=== PATIENT | female | born 1960 | race Caucasian/White ===

== ENCOUNTER 2017-04-29 07:56 | Day surgery (SDC) | payer OTHER ==
[~2017-04-29] VITALS: Ht 149.9 cm; Wt 85.3 kg
[~2017-04-29 07:56] MED LIST: CEFAZOLIN SOD 1 GM/ ISO 50 ML PREMIX IV ONE
[2017-04-29] MEDS ORDERED: SEVOFLURANE 15 MIN GAS INH ONE (11:03)
[2017-04-29] MEDS ORDERED: PROPOFOL 200MG/ 20ML VIAL (DIPRIVAN) IV ONE (11:03)
[2017-04-29] MEDS ORDERED: BUPIVACAINE /PF 0.25% 30 ML VIAL INJ ONE (11:03)
[2017-04-29] MEDS ORDERED: KETOROLAC TROMETHAMINE 30 MG VIAL IVP ONE (11:03)
[2017-04-29] MEDS ORDERED: fentaNYL CITRATE/PF 100 MCG/2 ML AMP IVP ONE (11:03)
[2017-04-29] MEDS ORDERED: LR 1,000 ML IV.SOLN IV ONE (11:03)
[2017-04-29] MEDS ORDERED: ONDANSETRON HCL 4 MG/2 ML VIAL IVP ONE (11:03)
[2017-04-29] MEDS ORDERED: NS IRRIG SOLN 1000 ML IR ONE (11:03)
[2017-04-29] MEDS ORDERED: MIDAZOLAM HCL 5 MG/5 ML VIAL IVP ONE (11:03)
[2017-04-29] MEDS ORDERED: LR 1,000 ML IV SCH (12:05)
[2017-04-29] MEDS ORDERED: ONDANSETRON HCL 4 MG/2 ML VIAL IVP PRN (12:15)
[2017-04-29] MEDS ORDERED: KETOROLAC TROMETHAMINE 30 MG VIAL IVP PRN (12:15)
[2017-04-29] MEDS ORDERED: MEPERIDINE HCL/PF 25 MG/ML DISP.SYRIN IVP PRN ×2 (12:15)
[2017-04-29] MEDS ORDERED: D5/0.45 NS 1,000 ML IV SCH (13:08)
[2017-04-29] MEDS ORDERED: HYDROcodone/ACETAMIN 5-325 MG TAB (NORCO/ VICODIN) PO PRN ×2 (13:15→14:30)
[2017-04-29] MEDS ORDERED: HYDROcodone/ACETAMIN 5-325 MG TAB (NORCO/ VICODIN) ONE (14:06)
[2017-04-29 14:17] VITALS: BP_SYST 128
[2017-04-29] MEDS ORDERED: HYDROmorphone 1 MG INJ. 1 MG/ML AMPUL IVP PRN (14:30)
== END 2017-04-29 16:00 | disposition home or self-care (01) ==
LOC: SDS 07:56 → SMU 07:57 → EDSTATUS 10:25 → SDS 16:00
PROVIDERS: ATTEND Colon & Rectal Surgery
DX: C50.911 Malignant neoplasm of unspecified site of right female breast (principal); E11.9 Type 2 diabetes mellitus without complications; Z79.84 Long term (current) use of oral hypoglycemic drugs; I10 Essential (primary) hypertension; K76.0 Fatty (change of) liver, not elsewhere classified; H52.03 Hypermetropia, bilateral; H25.093 Other age-related incipient cataract, bilateral; D48.5 Neoplasm of uncertain behavior of skin; Z80.1 Family history of malignant neoplasm of trachea, bronchus and lung; Z82.49 Family history of ischemic heart disease and other diseases of the circulatory system
CPT/HCPCS: 19081; 19301; 19281; 38525; 38900; 76098; 78195; 82962; 88307; 88333; 88342; A9541; J0690; J1885; J2250; J2405; J2704; J3010; J3490; J7120